=== PATIENT | male | born 1990 | race Caucasian/White ===

== ENCOUNTER 2020-05-17 14:00 | Outpatient (RCR) | payer OTHER, SELFPAY ==
--- NOTE | 2020-05-06 15:22 | MHC.PT.OE ---
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 PATIENT REPORTS INABILITY TO WALK COMMUNITY DISTANCES, LIFT > 10 LBS, POOR ABILITY TO CLIMB STAIR AND BEND. PATIENT REPORTS CHANGES WITH GAIT THROUGH RIGHT STANCE AND INSTABILITY WITH RIGHT SIDE WEIGHT TRANSFERS. PATIENT REPORTS NOTICE OF PAIN AFTER WORKING ON A HA[employer]. PATIENT REPORTS NOT HAVING CRUISE CONTROL AND REQUIRED TO HOLD RIGHT LEG IN A EXTERNALLY ROTATED POSITION. PATIENT REPORTS INCREASED PAIN AND BURNING PRESENT THROUGH THE WORK DAY. PATIENT REPORTS AT END OF WORK DAY PAIN WAS A 10/10 AND HE HAD DIFFICULTY WITH WALKING AND TRANSFERRING OUT OF THE TRUCK. SINCE THEN PATIENT REPORTS SEEKING MEDICAL ATTENTION AND TAKING GABAPENTIN 1800MG PER DAY. PATIENT REPORTS PAIN IS CONSTANT AND CONTINUATION OF INSTABILITY AND PAIN TO RIGHT LE IS PRESENT. PATIENT REPORTS UPCOMING IMAGING TO LOWER BACK SYMPTOMS OF PAIN, WEAKNESS AND TINGLING IS PRESENT TO LATERAL DISTAL R LE. 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 PATIENT REPORTS JOB DESCRIPTION REQUIRES A 12 HOUR SHIFT, WITH MATERIAL HANDLING AND SPECIAL EQUIPMENT OPERATION EXCEEDING 200 LBS. PATIENT IS REQUIRED TO MAKE SCHEDULED STOPS AND LOAD AND UNLOAD PRODUCE TO STORES. PATIENT REPORTS DEPENDING ON THE TRUCK AUTOMATIC CONTROL FOR PALLET ALAN AND DOORS MAY BE OPTIONAL, WITH OTHER REQUIRING FOOT PUMP AND PUSH PULL TO CLEARDOOR AND RAMP. PATIENT IS REQUIRED TO WALK, PUSH AND PULL MERCHANDISE ON ALAN THAT IS UNSTABLE BASED ON PACKAGING AND SURFACE AREA ONTO SIDE WALKS AND VARIATION OF HEIGHTS INTO STORE. PATIENT IS ALSO REQUIRED FOR SAFETY PREVENTATIVE MAINTENANCE AND CHECK OF THE VEHICLE, REQUIRING CLIMBING, STOOPING, PUSH/PULL,CRAWLING AND BEDNING OVER. Diagnostic Imaging: AWAITING XRAY Patient Goals and Expectations: 1. RETURN TO WORK 2. IMPROVE FUNCTIONAL STATUS Past Medical History: UNREMARKABLE Medications: GABAPENTIN 1800MG DAILY Precautions/ Contraindications: Outcome Measure: LOWER EXTREMITY FUNCTIONAL INDEX Pain Pain Score: 9 Pain Scale Used: Numeric (0 - 10) Pain Location: RIGHT DISTAL LATERAL LE Pain Radiation Location: PAIN RADIATING TO RIGHT L4-S1 Pain Frequency: Constant Pain Description: STABBING, BURNING TINGLY Aggravating Factors: POSITIVE FLEXION TEST, LIFTING FROM FLOOR TO WAIST, WAIST TO SHOULDER, SHOULDER TO OVERHEAD, TRANSFER WITH RIGHT SIDE PIVOT, INABILITY TO SQUAT OR STOOP Alleviating Factors: NONE REPORTED: TRIAL OF ICE AND HEAT WITH NO RESOLVE Objective Findings Posture: Rounded Shoulders Decreased Lordosis PATIENT GUARDED WITH DECREASED ABILITY TO WEIGHTBEAR ON RIGHT > 50% Skin & Soft Tissue/ Palpation: MODERATED MUSCLE GUARDING AND SPASMS TO ERECTOR SPINAE, QUADRATUS LUMBORUM. POOR TOLERANCE WITH ACCESSORY MOBILIZATION Gait/ Functional Mobility: PATIENT PRESENTS WITH ASYMMETRIC GAIT. DECREASED SWING PHASE ON LEFT AND DECREASED STANCE PHASE ON RIGHT. ER RIGHT LE POSITION THROUGH WEIGHT SHIFT WITH LEFT SIDE LEAN. FUNCTIONAL MOBILITY SCREEN: PATIENT PRESENTS WITH 25% FUNCTIONAL MOBILITY DUE TO INCREASE PAIN, INSTABILITY THROUGH FLEXED POSTURES AND POSTERIOR CHAIN TIGHTNESS. NOTED ASYMMETRICAL AND PAIN SQUAT TEST, POOR ABILITY FOR FLOOR TO WAIST PICK-UP AND LIFT AND POOR SINGLE LE STABILITY. THUS EFFECTING SAFETY WITH TRANSFERS REQUIRES TO GET ONTO HIGH SET OF TRACTOR TRAILER THAT IS > 30 INCHES TO STEP AND CAB. MODERATE FATIGUE WITH REPETITIVE TASK TO INCLUDE STEPPING AND SIMULATION OF MATERIAL HANDLING. AROM (PROM) Strength Lumbar Spine Flexion: 15% WITH INCREASE PAIN Extension: 25% GUARDED AND PAINFUL Lateral Flexion: 50% INCREASE PAIN WITH RIGHT LATERAL FLEXION Rotation: 25% GUARDED WITH PAIN TO LOWER AND MIDBACK Comments: HYPOMOBILE AND PAINFUL Transverse abdominus: Extensors: UNABLE TO TEST DUE TO PAIN Other: FUNCTIONAL MOTION WITH TRANSFERS PRESENTS WITH POOR ENDURANCE AND STRENGTH TO LOWER BACK MM EVIDENT BY MODERATE COMPENSATION PATTERNS, THAT INCLUDE OPPOSITE SIDE WEIGHT SHIFT AND AWAY FROM MIDLINE POSITION Hip Flexion: Extension: Abduction: Adduction: ER: IR: Comment: Flexion: RIGHT: 3/5 LEFT: 3+/5 Extension: Abduction: RIGHT: 3/5 LEFT: 3/5 Adduction: ER: RIGHT: 4-/5 LEFT: 4/5 IR: BILATERAL 4/5 Other: PAIN WITH MM TESTING AND NEURAL TENSION TO RIGHT LE SCIATIC BRANCH INTO SURAL NN Knee Flexion: Extension: Comments: Patella Mobility: Flexion: RIGHT: 4-/5 LEFT: 4+/5 Extension: RIGHT: 4/5 LEFT: 4+/5 Other: MM TESTING INCREASE PAIN, PAIN TO RIGHT LE WITH POSITION OF EXTENDED KNEE WITH TESTING Tomás Assessment: POOR TOLERANCE Sacroiliac Assessment: HYPOMOBILE AND GUARDED Muscle Length: MODERATE TIGHTNESS TO HAMSTRING, PIRIFORMIS A AND LOWER BACK Special Tests: POSITIVE REPETITIVE FLEXION TEST WITH RADIATING PAIN AND TINGLING SENSATION TO R L4-5, POSITIVE SLUMP TEST, RIGHT > LEFT, POSITIVE QUADRANT TEST BILATERAL Vitals: BP: HR: O2SAT: RR: Other: Balance: DELAYED STEPPING STRATEGIES ON RIGHT, DECREASED PROPIOCEPTION ON RIGHT > LEFT Neurological Screen: Biceps DTR: Brachioradialis DTR: Triceps DTR: Patella DTR: RIGHT: 1+ LEFT 2+ Achilles DTR: Other: Dermatomes: Sensation: Myotomes: RIGHT LE L3-4 Patient Education Primary Tax Accounting Manager Required No Who was Educated Patient Readiness for Learning Accepting Current Knowledge Understands information with skills for self-management Education Needs ADL's Disease Information Equipment Use Exercise Pain Safety Teaching Method Verbal Demonstration Handouts Audio/Video Phone Call How did Patient Demonstrate Learning Patient demonstrates Barriers to Learning None Assessment Assessment: PATIENT IS A 29 Y/O MALE WITH C/O OF LBP WITH RIGHT LE PAIN. PATIENT DID PRESENT TODAY WITH MODERATE NEURAL TENSION OF SCIATIC NN AND L4-5 AND INSTABILITY OF LOWER BACK AND RIGHT LE, EVIDENT ASYMMETRIC TRANSFERS, POOR GAIT MECHANICS AND COMPENSATORY PATTERNS THROUGH TRANSFERS. PATIENT DOES REPORT CONSTANT PAIN AND RADIATING SYMPTOMS EFFECTING RIGHT LE STRENGTH AND TOLERANCE TO STANDING AND WALKING. PATIENT CURRENTLY TAKING GABAPENTIN WITH MINIMAL EFFECT AND MAY WARRANT REFERRAL TO PAIN MANAGEMENT OR ALTERNATIVE MEDICATION AND TX PER PHYSICIAN. PATIENT POOR TOLERANCE TO FUNCTIONAL MOBILITY IS EVIDENT BY PAIN AND MODERATE COMPENSATION WITH MATERIAL HANDLING AT FLOOR, WAIST AND OVERHEAD, ASYMMETRICAL TRANSFERS FROM SIT TO STAND AND POOR MECHANICS TO OBTAIN UPRIGHT AND MIDLINE POSTURE. 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 PATIENT WILL BENEFIT FROM IMAGING TO RULE OUT STRUCTURAL AND/OR SOFT TISSUE DERANGEMENT BASED ON OBJECTIVE FINDING. PATIENT OOW LIGHT DUTY IS NOT AN OPTION FOR HIS JOB DESCRIPTION WELL POOR TOLERANCE TO SEATED AND STANDING > 10 MINUTES. PLAN OF CARE TO BE MODIFIED DEEMED FIT BY REFERRING PHYSICIAN. SKILLED PT TO BE IMPLEMENTED TO ADDRESS MOBILITY, LUMBAR STABILITY, STRENGTHENING AND CENTRALIZATION OF SYMPTOMS. Rehabilitation Potential: Good Plan of Care Frequency and Duration 2X WEEK X 4 WEEKS Short Term Goals 1. OBTAIN FURTHER IMAGING 2. FOLLOW UP WITH PHYSICIAN 3. PATIENT TO BE INDEPENDENT WITH HEP 4. EDUCATION ON MODIFICATION OF ADL'S TO REDUCE STRESS TO LOWER BACK 5. PROGRESS TO TOMÁS EXTENSION PROTOCOL Electrical Designer Goals 1. REDUCE PAIN AT WORST TO 3/10 2. CENTRALIZATION OF RIGHT LE SYMPTOMS BY 75% 3. PATIENT WILL PRESENT WITH SYMMETRICAL WEIGHT SHIFT THROUGH ALL TRANSFERS 4. TOLERATE MATERIAL HANDLING WITHOUT LIMITATION DUE TO PAIN OR SYMPTOMS 5. INCREASE CORE 5/5 6. INCREASE LUMBAR AROM TO 75% ALL DIRECTION WITHOUT LIMITATION DUE TO PAIN 7. INCREASE MM GRADE TO LE AND HIP GIRDLE TO 4+/5 BILATERAL, KNEE EXT: 5/5 8. 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 TOLERATE SEATED POSITION TO PREMORBID LEVELS 10. PATIENT WILL PRESENT WITH SAFE AND PROPER BIOMECHANICS THROUGH AL TRANSFERS Treatment Plan Therapeutic Exercise Dynamic Therapeutic Activities Neuromuscular Re-ed Manual Therapies Joint Mobilization Taping Gait Home Exercise Program Patient Education Electrical Stimulation Iontophoresis Ultrasound Mechanical Traction Hot or Cold Pack Other PATIENT MAY BENEFIT FROM HOME ELECTRICAL STIM UNIT FOR PAIN MANAGEMENT PATIENT MAY BENEFIT FROM LOWER BACK BRACE FOR STABILITY AND PROTECTION Reviewed/ Agreed with Student Documentation: Therapist: Please sign and return to therapist. Thank you for your referral.
== END 2020-08-29 09:39 | disposition other institution (70) ==
LOC: HO.PTWFD 14:00
PROVIDERS: PCP Hospitalist; Visit Provider Hospitalist
DX: M54.31 Sciatica, right side (principal)
CPT/HCPCS: 97110; 97162

== ENCOUNTER 2021-07-29 12:12 | Outpatient (REF) | payer OTHER, SELFPAY ==
[2021-07-29 14:00] LABS: Appearance Urine CLEAR; Color Urine YELLOW; Glucose Urine UA NEG (NEG); Leukocyte Esterase Urine NEG (NEG); Nitrite Urine NEG (NEG); Urine Blood TRACE (NEG); Urine Ketones NEG (NEG); Urine Protein NEG (NEG-TRACE)
[2021-07-29 14:15] LABS: WBC Urine 0-2 /HPF (0-4)
[2021-07-29 14:41] LABS: Anion Gap 10 (12-20); Blood Urea Nitrogen 12 mg/dL (9-16); Calcium 9.5 mg/dL (8.4-10.2); Carbon Dioxide 28 mmol/L (22-29); Chloride 104 mmol/L (96-108); Estimated Glomerular Filt Rate > 60; Glucose Random 88 mg/dL (60-115); Potassium 4.1 mmol/L (3.3-5.1); Sodium 138 mmol/L (135-145)
[2021-07-29 19:20] LABS: Appearance Urine CLEAR; Color Urine YELLOW; Glucose Urine UA NEG (NEG); Leukocyte Esterase Urine NEG (NEG); Nitrite Urine NEG (NEG); Urine Blood TRACE (NEG); Urine Ketones NEG (NEG); Urine Protein NEG (NEG-TRACE)
[2021-07-29 19:29] LABS: WBC Urine 0 /HPF (0-4)
[2021-07-29 19:30] LABS: Bacteria Urine TRACE /LPF; RBC Urine 0-2 /HPF (0)
== END 2021-07-29 12:13 | disposition home or self-care (01) ==
LOC: HO.WFDLDS 12:12
PROVIDERS: Hospitalist; Visit Provider Family Medicine
DX: Z00.00 Encounter for general adult medical examination without abnormal findings (principal); M54.41 Lumbago with sciatica, right side; Z20.2 Contact with and (suspected) exposure to infections with a predominantly sexual mode of transmission
CPT/HCPCS: 36415; 80048; 81001; 81003

== ENCOUNTER 2022-09-15 14:21 | Outpatient (REF) | payer BC, SELFPAY ==
[2022-09-16 05:59] LABS: CT PCR DETECTED (Not Detect.); NG PCR NOT DETECTED (Not Detect.)
== END 2022-09-15 14:22 | disposition home or self-care (01) ==
LOC: HO.LNP 14:21
PROVIDERS: Visit Provider Emergency Medicine
DX: Z11.3 Encounter for screening for infections with a predominantly sexual mode of transmission (principal); Z20.2 Contact with and (suspected) exposure to infections with a predominantly sexual mode of transmission
CPT/HCPCS: 0353U